=== PATIENT | female | born 1960 | race Caucasian/White ===

== ENCOUNTER 2018-07-06 17:12 | Emergency (ER) | payer OTHER ==
[~2018-07-06] VITALS: Ht 149.9 cm; Wt 47.6 kg
--- NOTE | ~2018-07-06 | EKG ---
[address] [place] [address] ELECTROCARDIOGRAM REPORT Name: DOMINGA BELLAMY Room #: [facility]P [facility] [id number] Admission: 07/06/18 Attend Phys: Discharge: 07/06/18 Date of : 64 Report #: [id number] THIS REPORT FOR: //name// [facility] ED Test Date: 2018-07-06 Test Time: 17:46:19 Pat Name: DOMINGA BELLAMY Department: Room: Gender: F [employer]: Joseph DAMIAN : 1960 Requested By: Stephanie Quintanilla Order Number: [id number] MD: Nasir Trejo Measurements Intervals [place] Rate: 67 P: 74 [place]: 130 QRS: 47 QRSD: 86 T: 53 QT: 428 QTc: 452 Interpretive Statements Sinus rhythm Normal tracing No previous ECG available for comparison Electronically Signed On 07-08-2018 8:32:30 CDT by Nasir Trejo [email or web address] <ELECTRONICALLY SIGNED> By: Nasir Trejo MD, [facility] 07/08/18 0832 1746 1746 Nasir Trejo MD, FACC /EPI
[2018-07-06 17:42] LABS: ABSOLUTE NEUTROPHILS 4.8 thou/uL (1.4-8.2); BASOPHILS 0.7 % (0.0-2.0); HEMATOCRIT 37.5 % (37.0-47.0); HEMOGLOBIN 12.5 gm/dL (12.0-15.0); LYMPHOCYTES 25.8 % (24.0-44.0); MCH 30.1 pg (26.0-34.0); MCHC 33.2 g/dL (28.0-37.0); MCV 90.7 fL (80.0-100.0); MONOCYTES 5.2 % (1.0-8.0); PLATELET COUNT 268 thou/uL (150-400); POLYS 66.3 % (36.0-66.0); RBC 4.14 mil/uL (4.20-5.00); RDW 12.4 % (10.5-14.5); WBC 7.2 thou/uL (4.0-11.0)
[2018-07-06 17:46] LABS: ANION GAP 9 mmol/L (7-16); BUN 12 mg/dL (7-18); CALCIUM 9.2 mg/dL (8.5-10.1); CHLORIDE 105 mmol/L (98-107); CO2 25 mmol/L (21-32); CREATININE 0.8 mg/dL (0.6-1.0); GLUCOSE 126 mg/dL (74-106); POTASSIUM 3.1 mmol/L (3.5-5.1); SODIUM 139 mmol/L (136-145)
[2018-07-06 17:54] LABS: ALBUMIN 3.8 g/dL (3.4-5.0); SGOT 40 U/L (15-37); SGPT 36 U/L (30-65); TOTAL BILIRUBIN 0.2 mg/dL (<0.1-1.0); TOTAL PROTEIN 6.9 g/dL (6.4-8.2); TROPONIN-I <0.06 ng/mL (<0.06)
[2018-07-06 18:50] VITALS: BP 138/83
[2018-07-06 19:01] LABS: URINE BILIRUBIN NEGATIVE (Negative); URINE BLOOD 1+ (Negative); URINE CLARITY CLEAR; URINE COLOR YELLOW; URINE GLUCOSE-RANDOM* NEGATIVE (Negative); URINE KETONES NEGATIVE (Negative); URINE LEUKOCYTES 1+ (Negative); URINE NITRITE NEGATIVE (Negative); URINE PROTEIN (DIPSTICK) NEGATIVE (Negative); URINE SPECIFIC GRAVITY 1.025 (1.005-1.035); URINE UROBILINOGEN 0.2 E.U./dl (0.2-1.0)
[2018-07-06 19:10] LABS: BACTERIA 1-9 Few /HPF (None Seen); CASTS None Seen /LPF (None Seen); CRYSTALS None Seen /LPF (None Seen); SQUAMOUS 0-3 Few /LPF (0-3); URINE RBC 0-2 Rare /HPF (0-2); URINE WBC 6-15 Few /HPF (0-5)
== END 2018-07-06 19:38 | disposition home or self-care (01) ==
LOC: ER 17:12
PROVIDERS: Physician Assistant
DX: R55 Syncope and collapse (principal); Z88.0 Allergy status to penicillin; Z88.2 Allergy status to sulfonamides